=== PATIENT | female | born 1985 | race Caucasian/White ===

== ENCOUNTER → 2023-09-12 12:13 | Outpatient (CLI) | payer MEDICARE, SELFPAY | PROVIDERS: PCP Physician Assistant Medical; Visit Provider Physician Assistant Medical | DX: F64.0 Transsexualism (principal) | CPT/HCPCS: 84402; 84403 ==

== ENCOUNTER → 2023-12-05 13:25 | Outpatient (CLI) | payer MEDICARE, SELFPAY ==
[2023-12-11 10:33] LABS: Percent Free Testosterone 3.14 % (0.50-2.80); Testosterone Free 14.06 ng/dL (0.10-0.85); Testosterone Total 447.7 ng/dL (10.0-55.0)
== END ==
PROVIDERS: PCP Physician Assistant Medical; Visit Provider Physician Assistant Medical
DX: F64.0 Transsexualism (principal); F64.9 Gender identity disorder, unspecified
CPT/HCPCS: 84402; 84403

== ENCOUNTER → 2024-01-15 13:30 | Outpatient (CLI) | payer OTHER, MEDICARE, SELFPAY | PROVIDERS: PCP Physician Assistant Medical; Visit Provider Physician Assistant Medical | DX: F64.0 Transsexualism (principal) | CPT/HCPCS: 84402; 84403 ==

== ENCOUNTER → 2024-02-29 09:51 | Outpatient (CLI) | payer MEDICARE, SELFPAY ==
[2024-02-29 17:59] LABS: Hematocrit 45.6 % (36-46); Hemoglobin 15.1 g/dL (12.0-16.0); Mean Corpuscular HGB Conc 33.2 % (30-36); Mean Corpuscular Hemoglobin 31.1 PG (26-34); Mean Corpuscular Volume 93.9 fL (80-100); Platelet Count 243 X10^3/uL (150-400); Red Blood Cell Count 4.86 X10^6/uL (4.0-5.2); Red Cell Distribution Width 13.5 % (11.6-14.8); White Blood Cell Count 6.3 X10^3/uL (4.5-11.0)
[2024-02-29 18:16] LABS: Alanine Aminotransferase 19 IU/L (<35); Albumin 4.5 g/dL (3.5-5.0); Albumin Globulin Ratio 1.8 (1.0-2.8); Alkaline Phosphatase 39 U/L (38-126); Aspartate Aminotransferase 27 IU/L (14-36); BUN Creatinine Ratio 16.3 (6-22); Bilirubin Total 0.4 mg/dL (0.2-1.3); Blood Urea Nitrogen 14 mg/dL (7-17); Calcium 9.4 mg/dL (8.4-10.2); Carbon Dioxide 27 mmol/L (22-32); Chloride 107 mmol/L (98-107); Cholesterol 223 mg/dL (140-199); Estimated Glomerular Filt Rate > 60 mL/min (>60); Globulin 2.5 g/dL (1.7-4.1); Glucose 87 mg/dL (70-100); HDL Cholesterol 54 mg/dL (40-60); HEMOLYSIS 18 (0-50); LDL Cholesterol Calculated 146 mg/dL (<100); Potassium 4.5 mmol/L (3.4-5.1); Sodium 137 mmol/L (137-145); Triglycerides 114 mg/dL (35-150)
[2024-03-16 15:03] LABS: Testosterone Total 1091.5
== END ==
PROVIDERS: PCP Physician Assistant Medical; Visit Provider Physician Assistant Medical
DX: F64.0 Transsexualism (principal); Z13.1 Encounter for screening for diabetes mellitus; Z13.29 Encounter for screening for other suspected endocrine disorder; Z13.6 Encounter for screening for cardiovascular disorders
CPT/HCPCS: 80053; 80061; 84402; 84403; 85027

== ENCOUNTER → 2024-03-24 09:25 | Outpatient (CLI) | payer MEDICARE, SELFPAY ==
[2024-03-30 18:38] LABS: Percent Free Testosterone 1.87 % (0.50-2.80); Testosterone Free 13.82 ng/dL (0.10-0.85); Testosterone Total 738.9 ng/dL (10.0-55.0)
== END ==
PROVIDERS: PCP Physician Assistant Medical; Visit Provider Physician Assistant Medical
DX: F64.0 Transsexualism (principal)
CPT/HCPCS: 84402; 84403

== ENCOUNTER → 2024-04-21 11:04 | Outpatient (CLI) | payer MEDICARE, SELFPAY | PROVIDERS: PCP Physician Assistant Medical; Visit Provider Physician Assistant Medical | DX: F64.0 Transsexualism (principal) | CPT/HCPCS: 84402; 84403 ==

== ENCOUNTER → 2024-09-03 14:02 | Outpatient (CLI) | payer MEDICARE, SELFPAY ==
[2024-09-03 19:20] LABS: Hematocrit 43.4 % (36-46); Hemoglobin 14.7 g/dL (12.0-16.0)
== END ==
PROVIDERS: PCP Physician Assistant Medical; Visit Provider Student in an Organized Health Care Education/Training Program
DX: Z78.9 Other specified health status (principal)
CPT/HCPCS: 84402; 84403; 85014; 85018

== ENCOUNTER → 2024-12-18 12:03 | Outpatient (CLI) | payer MEDICARE, SELFPAY ==
[2024-12-18 19:08] LABS: Hematocrit 44.4 % (36-46); Hemoglobin 15.3 g/dL (12.0-16.0)
== END ==
PROVIDERS: PCP Physician Assistant Medical; Visit Provider Student in an Organized Health Care Education/Training Program
DX: F64.0 Transsexualism (principal); Z79.899 Other long term (current) drug therapy
CPT/HCPCS: 84270; 84402; 84403; 85014; 85018